=== PATIENT | female | born 1995 | race Caucasian/White ===

== ENCOUNTER 2016-09-16 13:58 | Emergency (ER) | payer OTHER ==
[2016-09-16 14:49] LABS: HEMOGLOBIN 13.4 gm/dl (12.3-15.3); RED BLOOD COUNT 4.4 M/UL (4.00-5.10); WHITE BLOOD COUNT 6.9 K/UL (4.5-11.0)
[2016-09-16 15:16] LABS: BUN/CREATININE RATIO 16 (0-10)
== END 2016-09-16 16:55 | disposition home or self-care (01) ==
LOC: ER1 13:58
PROVIDERS: Emergency Medicine
DX: F41.9 Anxiety disorder, unspecified (principal); R07.89 Other chest pain; Z79.899 Other long term (current) drug therapy
CPT/HCPCS: 71010; 80053; 82550; 82553; 83874; 84484; 84703; 85025; 85379; 99285

== ENCOUNTER 2016-12-19 01:48 | Emergency (ER) | payer OTHER | END 2016-12-19 06:00 | disposition home or self-care (01) | LOC: ER1 01:48 | DX: R51 Headache (principal); F32.9 Major depressive disorder, single episode, unspecified; F41.9 Anxiety disorder, unspecified; Z79.899 Other long term (current) drug therapy | CPT/HCPCS: 96374; 96375; 99283; J1200; J1885; J2765 ==

== ENCOUNTER → 2016-12-29 | Outpatient (CLI) | payer OTHER | LOC: KOH-I 10:30 | DX: H53.9 Unspecified visual disturbance (principal); H70.91 Unspecified mastoiditis, right ear | CPT/HCPCS: 70450 ==

== ENCOUNTER → 2021-09-19 | Outpatient (CLI) | payer BC ==
[~2021-09-19] MED LIST: FLEXERIL 10 MG10 MG PO; KEFLEX CAP 500500 MG PO; LODINE CAP 300300 MG PO
== END ==
LOC: EXRD 14:23
DX: R22.0 Localized swelling, mass and lump, head (principal); R22.1 Localized swelling, mass and lump, neck
CPT/HCPCS: 76536